=== PATIENT | male | born 1990 | race Caucasian/White ===

== ENCOUNTER 2016-12-13 17:06 | Emergency (ER) | payer OTHER ==
[2016-12-13 17:12] VITALS: BP 135/73; PULSE 69; TEMP 97.9; BMI 24.1
[2016-12-13] MEDS ORDERED: RANITIDINE HCL 150 MG TABLET (FP) PO ONE (17:47)
[2016-12-13] MEDS ORDERED: predniSONE 20 MG TABLET (UD) PO ONE (17:47)
[2016-12-13] MEDS ORDERED: diphenhydrAMINE HCL 25 MG CAPSULE (FP) PO ONE ×2 (17:47→17:49)
[2016-12-13] MEDS ORDERED: RANITIDINE HCL 150 MG TABLET (FP) ONE (17:49)
[2016-12-13] MEDS ORDERED: predniSONE 20 MG TABLET (UD) ONE (17:50)
--- NOTE | 2016-12-13 17:56 | PDOC ---
History of Present Illness - General Chief Complaint: Rash Stated Complaint: RASH Time Seen by Provider: 12/13/16 17:46 History Source: Patient Exam Limitations: No Limitations - History of Present Illness Initial Comments: 12/13/16 17:48 Chief complaint: Itchy rash that started after eating pork chops yesterday History of present illness: Patient is a 26-year-old male with no significant medical history here today complaining of a pruritic rash that started shortly after eating pork chops yesterday and spread to his arms face torso and feet that. Patient reports that when he woke this morning his hands were slightly swollen. Patient denies ever having any kind of reaction like this in the past. Patient denies any difficulty swallowing or breathing. Patient did not take anything for the itchiness. Patient denies using any new creams, soaps, or eating any other new foods or taking any medications. Patient is alert and interactive. Swelling in hands has resolved as the day has gone on today. 12/13/16 18:09 12/13/16 19:11 Timing/Duration: getting worse Severity: moderate Associated Symptoms: reports: rash (pruritic face, torso, arms, feet, hands ) Past History - Past Medical History Allergies/Adverse Reactions: Allergies Allergy/AdvReac Type Severity Reaction Status Date / Time No Known Allergies Allergy Verified 12/13/16 17:12 Home Medications: Ambulatory Orders Erythromycin 0.5% Eye Ointment [Erythromycin 0.5% Eye Ointment -] 1 applic OD Q4H #1 tube 10/12/15 Prednisone [Deltasone -] 20 mg PO BID #8 tablet 12/13/16 Ranitidine [Zantac -] 150 mg PO BID #8 tablet 12/13/16 Other medical history: NONE - Psycho/Social/Smoking Cessation Hx Anxiety: No Suicidal Ideation: No Smoking History: Never smoked Hx Alcohol Use: Yes (SOCIAL) Drug/Substance Use Hx: No Substance Use Type: None Review of Systems - Review of Systems Able to Perform ROS?: Yes Constitutional: No: Symptoms Reported HEENTM: No: Symptoms Reported Respiratory: No: Symptoms reported Cardiac (ROS): No: Symptoms Reported ABD/GI: No: Symptoms Reported : No: Symptoms Reported Musculoskeletal: No: Symptoms Reported Integumentary: Yes: Pruritus (face, hands, arms, torso and feet ), Rash Neurological: No: Symptoms reported *Physical Exam - Vital Signs Last Vital Signs Temp Pulse Resp BP Pulse Ox 97.9 F 69 20 135/73 98 12/13/16 17:08 12/13/16 17:08 12/13/16 17:08 12/13/16 17:08 12/13/16 17:08 - Physical Exam General Appearance: Yes: Appropriately Dressed HEENT: positive: Normal ENT Inspection Neck: negative: Lymphadenopathy (R), Lymphadenopathy (L) Respiratory/Chest: positive: Lungs Clear, Normal Breath Sounds. negative: Chest Tender, Respiratory Distress Cardiovascular: positive: Regular Rhythm, Regular Rate, S1, S2 Integumentary: positive: Hives (face, arms, torso and feet) Neurologic: positive: Alert, Normal Response, Responsive Medical Decision Making - Medical Decision Making 12/13/16 17:56 Patient is a 26-year-old male with no significant medical history here today complaining of a pruritic rash that started shortly after eating pork chops yesterday and spread to his arms face torso and feet that. Patient reports that when he woke this morning his hands were slightly swollen. Patient denies ever having any kind of reaction like this in the past. Patient denies any difficulty swallowing or breathing. Patient did not take anything for the itchiness. Patient denies using any new creams, soaps, or eating any other new foods or taking any medications. Patient is alert and interactive. Swelling in hands has resolved as the day has gone on today. allergic urticaria PLAN: prednisone 60 mg po now than 20 mg bid for following 4 days benadryl 25 mg po now than every 4 hrs prn itchiness zantac 150 gm po now than bid for following 4 days 12/13/16 18:10 12/13/16 18:12 12/13/16 19:11 Patient rate reports decreased itchiness rash has dissipated slightly will discharge to home *DC/Admit/Observation/Transfer Diagnosis at time of Disposition: Allergic urticaria - Discharge Dispostion Disposition: HOME Condition at time of disposition: Stable - Prescriptions Prescriptions: Prednisone [Deltasone -] 20 mg PO BID #8 tablet Ranitidine [Zantac -] 150 mg PO BID #8 tablet - Referrals Referrals: Scot Stanford MD [Staff Physician] - - Patient Instructions Additional Instructions: Follow up with ear nose and throat doctor for allergy testing as soon as possible Do not reports shops until allergy to this has been ruled out You may purchase Benadryl (diphenydramine) 25 mg [id number] and take every 4 hours as needed for itchiness Return to emergency room if any difficulty breathing or swallowing Patient voiced understanding of discharge instructions and all questions were answered
== END 2016-12-13 19:49 | disposition home or self-care (01) ==
LOC: JERFT 17:06
DX: L50.0 Allergic urticaria (principal)
CPT/HCPCS: 99281-25

== ENCOUNTER 2018-01-11 13:54 | Emergency (ER) | payer OTHER ==
[2018-01-11 14:13] VITALS: BP 131/83; PULSE 76; TEMP 98; BMI 24.1
--- NOTE | 2018-01-11 14:59 | PDOC ---
History of Present Illness - General History Source: Patient Exam Limitations: No Limitations - History of Present Illness Initial Comments: 01/11/18 15:57 The patient is a 27 year old female with no significant PMH who presents to the emergency department with throat irritation after swallowing pumpkin seeds on and 01/10. The patient is complaining of pain with swallowing but is currently able to tolerate PO intake without choking. The patient reports difficulty swallowing solid foods, liquids, and his own secretions. The patient notes he last ate soup this morning that also caused him to experience difficulty swallowing. The patient has no other complaints today. The patient denies abdominal pain, chest pain, shortness of breath, headache and dizziness. Denies fever, chills, nausea, vomit, diarrhea and constipation. Denies dysuria, frequency, urgency and hematuria. Allergies: Past surgical history: None reported. Social history: No reported alcohol, drug, or cigarette use. <Fior Keenan - Last Filed: 01/11/18 15:55> <Ana Luisa Presley - Last Filed: 01/11/18 16:40> - General Chief Complaint: Foreign Body (FB) Stated Complaint: FOREIGN BODY(FB) Time Seen by Provider: 01/11/18 14:58 Past History <Fior Keenan - Last Filed: 01/11/18 15:55> - Past Medical History COPD: No - Suicide/Smoking/Psychosocial Hx Smoking History: Never smoked Have you smoked in the past 12 months: No Information on smoking cessation initiated: No Hx Alcohol Use: No Drug/Substance Use Hx: No Substance Use Type: None <Ana Luisa Presley - Last Filed: 01/11/18 16:40> - Past Medical History Allergies/Adverse Reactions: Allergies Allergy/AdvReac Type Severity Reaction Status Date / Time No Known Allergies Allergy Verified 01/11/18 14:10 Home Medications: Ambulatory Orders Erythromycin 0.5% Eye Ointment [Erythromycin 0.5% Eye Ointment -] 1 applic OD Q4H #1 tube 10/12/15 Ranitidine [Zantac -] 150 mg PO BID #8 tablet 12/13/16 predniSONE [Deltasone -] 20 mg PO BID #8 tablet 12/13/16 Review of Systems - Review of Systems Able to Perform ROS?: Yes Comments:: 01/11/18 15:56 GENERAL/CONSTITUTIONAL: No fever or chills. No weakness. HEAD, EYES, EARS, NOSE AND THROAT: (+) Throat irritation. No change in vision. No ear pain or discharge. CARDIOVASCULAR: No chest pain or shortness of breath. RESPIRATORY: No cough, wheezing, or hemoptysis. GASTROINTESTINAL: No nausea, vomiting, diarrhea or constipation. GENITOURINARY: No dysuria, frequency, or change in urination. MUSCULOSKELETAL: No joint or muscle swelling or pain. No neck or back pain. SKIN: No rash NEUROLOGIC: No headache, vertigo, loss of consciousness, or change in strength/ sensation. ENDOCRINE: No increased thirst. No abnormal weight change. HEMATOLOGIC/LYMPHATIC: No anemia, easy bleeding, or history of blood clots. ALLERGIC/IMMUNOLOGIC: No hives or skin allergy. <Fior Keenan - Last Filed: 01/11/18 15:55> *Physical Exam - Vital Signs Last Vital Signs Temp Pulse Resp BP Pulse Ox 98.0 F 76 18 131/83 100 01/11/18 14:11 01/11/18 14:11 01/11/18 14:11 01/11/18 14:11 01/11/18 14:11 - Physical Exam Comments: 01/11/18 15:55 GENERAL: Awake, alert, and fully oriented, in no acute distress HEAD: No signs of trauma EYES: PERRLA, EOMI, sclera anicteric, conjunctiva clear ENT: Auricles normal inspection, hearing grossly normal, nares patent, oropharynx clear without exudates. Moist mucosa NECK: Normal ROM, supple, no lymphadenopathy, JVD, or masses LUNGS: Breath sounds equal, clear to auscultation bilaterally. No wheezes, and no crackles HEART: Regular rate and rhythm, normal S1 and S2, no murmurs, rubs or gallops SKIN: Warm, Dry, normal turgor, no rashes or lesions noted. <Fior Keenan - Last Filed: 01/11/18 15:55> - Vital Signs Last Vital Signs Temp Pulse Resp BP Pulse Ox 98.0 F 76 18 131/83 100 01/11/18 14:11 01/11/18 14:11 01/11/18 14:11 01/11/18 14:11 01/11/18 14:11 <Ana Luisa Presley - Last Filed: 01/11/18 16:40> Medical Decision Making - Medical Decision Making 01/11/18 15:47 Pt presents to the ED complaining of throat irritation after swallowing pumpkin seeds on Thursday and Thursday. Denies other complaints. Tolerating Po solids and liquids with mild pain but otherwise no difficulty. Retained foreign body is unlikely. Will treat irritation with magic mouthwash, instruct the pateint to return to the ED for worsening complaints and follow up with ENT. <Ana Luisa Presley - Last Filed: 01/11/18 16:40> *DC/Admit/Observation/Transfer - Attestations Scribe Attestion: 01/11/18 15:55 Documentation prepared by Fior Keenan, acting as medical dir for Ana Luisa Presley MD. <Fior Keenan - Last Filed: 01/11/18 15:55> - Discharge Dispostion Admit: No <Ana Luisa Presley - Last Filed: 01/11/18 16:40> Diagnosis at time of Disposition: Sore throat - Discharge Dispostion Disposition: HOME Condition at time of disposition: Good - Referrals Referrals: Casimiro Allison MD [Staff Physician] - - Patient Instructions Printed Discharge Instructions: DI for Foreign Body, Swallowed-Adult Additional Instructions: return to the ED for severe pain, if you are unable to tolerate PO, nausea and vomiting, drooling. Make sure that you follow up with ENT if you have persistent or worsening symptoms.
[2018-01-11] MEDS ORDERED: MAG HYDROX/ALH/SMC/DPHA/LIDO 240 ML MOUTHWASH MM ONE (15:44)
== END 2018-01-11 16:57 | disposition home or self-care (01) ==
LOC: JER 13:54
DX: J02.9 Acute pharyngitis, unspecified (principal)
CPT/HCPCS: 99282-25

== ENCOUNTER 2019-07-26 19:04 | Emergency (ER) | payer OTHER | END 2019-07-26 21:36 | disposition home or self-care (01) | LOC: JERFT 19:04 ==

== ENCOUNTER 2023-02-02 22:02 | Emergency (ER) | payer OTHER ==
[2023-02-02 22:17] VITALS: BMI 30.9
[2023-02-03 01:31] VITALS: BP 127/66; PULSE 94; RESP 16; TEMP 99.8
[2023-02-03] MEDS ORDERED: ACETAMINOPHEN 325 MG TABLET (FP) PO ONE (01:52)
[2023-02-03] MEDS ORDERED: ACETAMINOPHEN 325 MG TABLET (FP) ONE (02:09)
[2023-02-03 02:21] LABS: URINE APPEARANCE CLEAR; URINE BILIRUBIN NEGATIVE (NEGATIVE); URINE COLOR YELLOW; URINE GLUCOSE (UA) NEGATIVE (NEGATIVE); URINE KETONE NEGATIVE (NEGATIVE); URINE LEUK ESTERASE NEGATIVE (NEGATIVE); URINE NITRITE NEGATIVE (NEGATIVE); URINE PROTEIN TRACE (NEGATIVE)
== END 2023-02-03 03:09 | disposition home or self-care (01) ==
LOC: JER 22:02
DX: R50.9 Fever, unspecified (principal); B34.9 Viral infection, unspecified; Z20.822 Contact with and (suspected) exposure to COVID-19
CPT/HCPCS: 0241U-QW; 81003; 99283-25